=== PATIENT | female | born 1940 | race Caucasian/White ===

== ENCOUNTER 2016-09-06 09:55 | Inpatient (IN) | payer OTHER ==
[2016-09-06] MEDS ORDERED: NS 1,000 ML IV ONE (10:25)
--- NOTE | 2016-09-06 10:51 | EDPHY ---
H & P Stated Complaint: flare of diverticulitis/seeing dr atwood 09/17 for surgery Time Seen by Provider: 09/06/16 10:07 HPI/ROS: CHIEF COMPLAINT: Abdominal pain HISTORY OF PRESENT ILLNESS: The patient has a history of severe recurrent diverticulitis. She has been on antibiotics 3 times over the past 5 months. The patient is scheduled see colorectal specialist in 2 weeks. She was last on Cipro approximately 10 days ago. She has multiple medication allergies. The patient presents to the ED today with complaints of ongoing recurrent left lower quadrant pain. She denies fever. She denies vomiting. She denies additional complaints. The patient reports her pain as being moderate in nature. REVIEW OF SYSTEMS: A comprehensive 10 point review of systems is otherwise negative aside from elements mentioned in the history of present illness. Source: Patient Exam Limitations: No limitations - Personal History Current Tetanus/Diphtheria Vaccine: Unsure - Medical/Surgical History Hx Asthma: No Hx Chronic Respiratory Disease: No Hx Diabetes: No Hx Cardiac Disease: No Hx Renal Disease: No Hx Cirrhosis: No Hx Alcoholism: No Hx HIV/AIDS: No Hx Splenectomy or Spleen Trauma: No Other PMH: diverticulitis/htn/tia - Social History Smoking Status: Never smoked - Physical Exam Exam: General Appearance: Alert, no acute distress Eyes: Pupils equal and round no pallor or injection ENT, Mouth: Mucous membranes moist Respiratory: There are no retractions, lungs are clear to auscultation Cardiovascular: Regular rate and rhythm Gastrointestinal: Moderate tenderness to palpation in the left lower quadrant, no peritoneal signs, normal bowel sounds Neurological: A&O, normal motor function, normal sensory exam, normal cranial nerves Skin: Warm and dry, no rashes Musculoskeletal: Neck is supple nontender Extremities: symmetrical, full range of motion Constitutional: Initial Vital Signs Temperature (C) 36.7 C 09/06/16 10:00 Heart Rate 76 09/06/16 10:00 Respiratory Rate 17 09/06/16 10:00 Blood Pressure 183/113 H 09/06/16 10:00 O2 Sat (%) 96 09/06/16 10:00 O2 Delivery Mode Room Air Allergies/Adverse Reactions: acetaminophen [From Darvocet-N] Allergy (Verified 09/06/16 09:58) iodine Allergy (Verified 09/06/16 09:58) metronidazole [From Flagyl] Allergy (Verified 09/06/16 09:58) propoxyphene [From Darvocet-N] Allergy (Verified 09/06/16 09:58) contrast for ct Allergy (Uncoded 09/06/16 09:58) Home Medications: Medication Instructions Recorded Aspirin 81mg (*) 09/06/16 Atorvastatin Calcium 09/06/16 Carvedilol 09/06/16 Famotidine 09/06/16 Fortical (*) 09/06/16 Restasis Opht Drops(*) 09/06/16 Medical Decision Making - Diagnostics Imaging Results: Imaging Impressions Abdomen/Pelvis CT 09/06/16 10:46 Impression: 1. Acute diverticulitis of the proximal sigmoid colon. 2. No bowel obstruction, drainable abscesses or pneumoperitoneum. 3. Atherosclerotic aorta without aneurysm. Attention: This CT examination is specifically designed to evaluate patients who are clinically suspected of having acute obstructive uropathy. This examination does not use radiographic contrast, and as such, provides only a limited evaluation of the abdomen, pelvis and retroperitoneum. If there is further clinical suspicion for pathological conditions other than obstructive uropathy, a complete CT evaluation of the abdomen and pelvis utilizing intravenous, oral, and rectal contrast should be considered. Findings and recommendations discussed with Emergency Department physician, Damian Dozier at 11:27 hour, 09/06/2016. Final report concurs with initial preliminary interpretation. ED Course/Re-evaluation: The patient presents to the ED with complaints of acute abdominal pain and symptoms consistent with recurrent diverticulitis. She was taken for CT scan of the abdomen pelvis which demonstrates evidence of sigmoid diverticulitis without perforation or abscess. Patient had an IV established. She received a L of normal saline. She received 750 mg of IV Levaquin. The patient did undergo serial examinations by myself x2 over a 2 hour period. She continues to have moderate pain and moderate tenderness on exam. I do feel the patient should be admitted to the hospital for bowel rest and IV antibiotic therapy. Consultation was made with the hospitalist service for admission. Patient will be admitted by Dr. Carleen Arzate for further supportive care. Differential Diagnosis: Differential diagnosis considered includes diverticulitis, perforation, abscess , obstruction - Data Points Laboratory Results: Laboratory Results 09/06/16 11:00 09/06/16 11:00 09/06/16 09/06/16 09/06/16 11:00 11:00 11:00 WBC 10.42 10^3/uL H 10^3/uL (3.80-9.50) RBC 5.10 10^6/uL 10^6/uL (4.18-5.33) Hgb 16.2 g/dL g/dL (12.6-16.3) Hct 46.1 % % (38.0-47.0) MCV 90.4 fL fL (81.5-99.8) MCH 31.8 pg pg (27.9-34.1) MCHC 35.1 g/dL g/dL (32.4-36.7) RDW 11.9 % % (11.5-15.2) Plt Count 298 10^3/uL 10^3/uL (150-400) MPV 10.1 fL fL (8.7-11.7) Neut % (Auto) 67.9 % % (39.3-74.2) Lymph % (Auto) 20.3 % % (15.0-45.0) Beadle % (Auto) 9.5 % % (4.5-13.0) Eos % (Auto) 1.4 % % (0.6-7.6) Baso % (Auto) 0.6 % % (0.3-1.7) Nucleat RBC Rel Count 0.0 % % (0.0-0.2) Absolute Neuts (auto) 7.07 10^3/uL H 10^3/uL (1.70-6.50) Absolute Lymphs (auto) 2.12 10^3/uL 10^3/uL (1.00-3.00) Absolute Monos (auto) 0.99 10^3/uL H 10^3/uL (0.30-0.80) Absolute Eos (auto) 0.15 10^3/uL 10^3/uL (0.03-0.40) Absolute Basos (auto) 0.06 10^3/uL 10^3/uL (0.02-0.10) Absolute Nucleated RBC 0.00 10^3/uL 10^3/uL (0-0.01) Immature Gran % 0.3 % % (0.0-1.1) Immature Gran # 0.03 10^3/uL 10^3/uL (0.00-0.10) PT 12.6 SEC SEC (12.0-15.0) INR 0.95 (0.83-1.16) APTT 27.0 SEC SEC (23.0-38.0) Sodium 139 mEq/L mEq/L (134-144) Potassium 4.4 mEq/L mEq/L (3.5-5.2) Chloride 104 mEq/L mEq/L (97-110) Carbon Dioxide 23 mEq/l mEq/l (22-31) Anion Gap 12 mEq/L mEq/L (8-16) BUN 15 mg/dL mg/dL (7-23) Creatinine 0.8 mg/dL mg/dL (0.6-1.0) Estimated GFR > 60 Glucose 112 mg/dL H mg/dL (70-100) Calcium 10.3 mg/dL mg/dL (8.5-10.4) Medications Given: Discontinued Medications Sodium Chloride (Ns) 1,000 mls @ 0 mls/hr IV ONCE ONE; Wide Open PRN Reason: Protocol Stop: 09/06/16 10:26 Last Admin: 09/06/16 10:45 Dose: 1,000 mls Departure - Departure Disposition: [facility] Inpatient Acute Clinical Impression: Acute diverticulitis Condition: Good Referrals: Miri Harrell MD [Primary Care Provider] - As per Instructions
[2016-09-06 11:11] LABS: % IMMATURE GRANULYOCYTES 0.3 % (0.0-1.1); ABSOLUTE IMMATURE GRANULOCYTES 0.03 10^3/uL (0.00-0.10); ADD DIFF? NO; ADD MORPH? NO; ADD SCAN? NO; ATYPICAL LYMPHOCYTE FLAG 0 (0-99); FRAGMENT RBC FLAG 0 (0-99); HEMATOCRIT 46.1 % (38.0-47.0); HEMOGLOBIN 16.2 g/dL (12.6-16.3); LEFT SHIFT FLG 0 (0-99); LIPEMIA HEMOLYSIS FLAG 90 (0-99); MEAN CELL HEMOGLOBIN 31.8 pg (27.9-34.1); MEAN CELL HEMOGLOBIN CONCENTR. 35.1 g/dL (32.4-36.7); MEAN CELL VOLUME 90.4 fL (81.5-99.8); MEAN PLATELET VOLUME 10.1 fL (8.7-11.7); PLATELET CLUMPS FLAG 0 (0-99); PLATELET COUNT 298 10^3/uL (150-400); RED CELL DISTRIBUTION WIDTH 11.9 % (11.5-15.2)
[2016-09-06 11:18] LABS: INR 0.95 (0.83-1.16); PROTIME(PATIENT) 12.6 SEC (12.0-15.0)
[2016-09-06 11:31] LABS: ANION GAP 12 mEq/L (8-16); CALCIUM 10.3 mg/dL (8.5-10.4); CARBON DIOXIDE 23 mEq/l (22-31); CHLORIDE 104 mEq/L (97-110); CREATININE 0.8 mg/dL (0.6-1.0); GLOMERULAR FILTRATION RATE > 60; GLUCOSE 112 mg/dL (70-100); POTASSIUM 4.4 mEq/L (3.5-5.2); SODIUM 139 mEq/L (134-144)
[2016-09-06] MEDS ORDERED: ACETAMINOPHEN 325 MG TAB PO PRN (15:12)
[2016-09-06] MEDS ORDERED: ONDANSETRON DISINTEGRATING 4 MG TAB PO PRN (15:12)
[2016-09-06] MEDS: NS 1,000 ML IV SCH (15:54)
[2016-09-06] MEDS: CARVEDILOL 25 MG TAB PO SCH (16:24)
[2016-09-06] MEDS: HYDROmorphONE/DILAUDID 1 MG/ML SYR IVP PRN ×3 (16:24→21:46)
[2016-09-06] MEDS: ERTAPENEM 1 GM in NS 100 ML IV SCH (16:24)
--- NOTE | 2016-09-06 17:22 | GHP ---
[f rep st] HISTORY AND PHYSICAL DATE OF ADMISSION: 09/06/2016 CHIEF COMPLAINT: Abdominal pain. HISTORY OF PRESENT ILLNESS: The patient is a very sweet 76-year-old with a history significant for diverticulitis and diverticulosis. She has had multiple episodes in the last several years and has an appointment scheduled with the surgeon at the end of September. She has been relatively healthy. Her only other medical history is hypertension and comes in with several days of abdominal pain. She s aid her pain started about 3 weeks ago. It was fairly mild and she was able to deal with it; vikki ramirez, she went in to see her primary care provider on the . At that time she was started on Cipro. She has been intolerant of Augmentin in the past due to diarrhea and Flagyl has caused a severe bod y rash. Over the next several days she did not get much better. Last night, she started developing low-grad e fevers and this morning when she got up, she continued to have fairly severe abdominal pain so she came into the emergency department. She has no other significant symptoms. No headache, chest indra n, shortness of breath. She has had no diarrhea. Her last bowel movement was this morning. She is urinating. She has been eating okay and denies any lower extremity edema or any other joint pains. She has had multiple episodes previously of her diverticulitis. She was last hospitalized in [place] at which time she was started on Flagyl and that is when she had her body rash. She also has a hist ory of hypertension and that has been fairly labile in the past, as well as a remote history of [facility] cancer. REVIEW OF SYSTEMS: A 10-point review of systems was done and is negative except as stated in the hi story of present illness. PAST MEDICAL HISTORY: 1. Osteoarthritis. 2. Osteoporosis. 3. Dyslipidemia. 4. Hypertension. 5. Prediabetes. 6. Acid reflux. 7. History of breast cancer. 8. History of TIA. SOCIAL HISTORY: She is . She does have a son who lives close by. She is originally from [place] [place], but [place]. She denies any tobacco or significant alcohol u se. She does have a Living Will but wishes to be a full code at this time. FAMILY HISTORY: Noncontributory. Parents are . ALLERGIES: Include Augmentin which causes massive diarrhea, Flagyl which causes a rash, IV iodine d ye and propoxyphene. CURRENT MEDICATIONS: Include carvedilol 12.5 mg b.i.d., Lipitor 10 mg daily, aspirin daily, [place]-3 fatty acids, multivitamin, vitamin D3, calcitonin and Pepcid. PHYSICAL EXAMINATION: VITAL SIGNS: She is afebrile. Heart rate 70, blood pressure 150/86, respira tions 16. She is 95% on room air. GENERAL: She is a very nice 76-year-old woman in mild distress. She is alert and oriented. Speech is clear and fluent. HEENT: Nontraumatic. Pupils are equal. Extraocular movements intact. Speech is fluent. Mucous membranes are moist. Oropharynx is clear. NECK: Supple without adenopathy. HEART: Regular rate and rhythm without murmur, gallop, or rub. LUNGS: Clear bilaterally without wheeze, rhonchi, or rales. ABDOMEN: Slightly diminished bowel sounds. She does have significant tenderness in her left lower quadrant with guarding. No rebound. EXTREMITIES: No clubbing, cyanosis, or edema. MUSCULOSKELETAL: No joint deformities or effusion s. NEUROLOGIC: Her speech is fluent. She is alert and oriented. She moves all 4 extremities. SK IN: Intact, no rash. LABORATORY DATA: CBC shows a white count of 10.4, H and H and platelet count are normal. Electroly melissa and renal function are normal. Abdomen CT shows acute diverticulitis of the proximal sigmoid colon. No obvious abscesses noted. ASSESSMENT AND PLAN: A 76-year-old presents with abdominal pain and notable diverticulitis on CT sc an. 1. Acute diverticulitis of the sigmoid colon. The patient does have some drug allergies notable ab ove. Plan will be to start her on Invanz, keep on a clear liquid diet. Provide pain control and IV fluids. Will monitor her clinically over the next few days. 2. Hypertension. Blood pressure has been quite labile. Will resume her carvedilol and add IV anti hypertensives on an as-needed basis. 3. Osteoporosis. Continue her medications. 4. Prediabetes. Hemoglobin A1c of 6. Will monitor her a.m. sugars and provide insulin sliding sca le only as needed. 5. Deep venous thrombosis prophylaxis. Start low-molecular heparin. 6. Code status full. /[id number]/MODL
[2016-09-06] MEDS: FAMOTIDINE 20 MG TAB PO SCH (20:28)
[2016-09-06] MEDS: ATORVASTATIN CALCIUM 10 MG TAB PO SCH (20:28)
[2016-09-06] MEDS: ASPIRIN EC 81 MG TAB PO SCH (20:28)
[2016-09-06] MEDS: ONDANSETRON 4 MG/2 ML VIAL IVP PRN (21:46)
[2016-09-07] MEDS: NS 1,000 ML IV SCH (01:50)
[2016-09-07] MEDS: HYDROmorphONE/DILAUDID 1 MG/ML SYR IVP PRN ×3 (01:50→10:02)
[2016-09-07] MEDS: ONDANSETRON 4 MG/2 ML VIAL IVP PRN ×3 (01:50→10:02)
[2016-09-07 05:30] LABS: % IMMATURE GRANULYOCYTES 0.4 % (0.0-1.1); ABSOLUTE IMMATURE GRANULOCYTES 0.04 10^3/uL (0.00-0.10); ADD DIFF? NO; ADD MORPH? NO; ADD SCAN? NO; ATYPICAL LYMPHOCYTE FLAG 0 (0-99); FRAGMENT RBC FLAG 0 (0-99); HEMATOCRIT 39.7 % (38.0-47.0); HEMOGLOBIN 13.3 g/dL (12.6-16.3); LEFT SHIFT FLG 0 (0-99); LIPEMIA HEMOLYSIS FLAG 80 (0-99); MEAN CELL HEMOGLOBIN 31.1 pg (27.9-34.1); MEAN CELL HEMOGLOBIN CONCENTR. 33.5 g/dL (32.4-36.7); MEAN PLATELET VOLUME 10.2 fL (8.7-11.7); PLATELET CLUMPS FLAG 0 (0-99); PLATELET COUNT 230 10^3/uL (150-400); RED BLOOD CELL COUNT 4.27 10^6/uL (4.18-5.33)
[2016-09-07 05:50] LABS: ALANINE AMINOTRANSFERASE 31 IU/L (9-52); ALBUMIN 3.4 g/dL (3.5-5.0); ALKALINE PHOSPHATASE 89 IU/L (38-126); ANION GAP 7 mEq/L (8-16); ASPARTATE AMINOTRANSFERASE 16 IU/L (14-46); BILIRUBIN,TOTAL 1.3 mg/dL (0.1-1.4); CALCIUM 9.1 mg/dL (8.5-10.4); CARBON DIOXIDE 23 mEq/l (22-31); CHLORIDE 108 mEq/L (97-110); CREATININE 0.8 mg/dL (0.6-1.0); GLOMERULAR FILTRATION RATE > 60; GLUCOSE 101 mg/dL (70-100); POTASSIUM 4.3 mEq/L (3.5-5.2); SODIUM 138 mEq/L (134-144); TOTAL PROTEIN 5.8 g/dL (6.3-8.2)
[2016-09-07] MEDS: CHOLECALCIFEROL VIT D3 1,000 UNITS TAB PO SCH (10:03)
[2016-09-07] MEDS: FAMOTIDINE 20 MG TAB PO SCH ×2 (10:03→19:50)
[2016-09-07] MEDS: ASPIRIN EC 81 MG TAB PO SCH ×2 (10:03→19:51)
[2016-09-07] MEDS: CARVEDILOL 25 MG TAB PO SCH ×2 (10:03→17:28)
[2016-09-07] MEDS: CALCITONIN 200 UNITS/SPRAY INH NS SCH (10:04)
[2016-09-07] MEDS: CYCLOSPORINE 0.05% 1 EACH BOX EACHEYE SCH (10:05)
[2016-09-07] MEDS: ERTAPENEM 1 GM in NS 100 ML IV SCH (10:05)
[2016-09-07] MEDS: ENOXAPARIN 40 MG/0.4 ML SYR SC SCH (11:05)
[2016-09-07] MEDS ORDERED: oxyCODONE IR 5 MG TAB PO PRN (12:54)
--- NOTE | 2016-09-07 13:12 | HOSPPROG ---
Hospitalist Progress Note Assessment/Plan: Very pleasant 76-year-old is admitted with diverticulitis. She is little bit better today but still has no appetite and quite a bit of tenderness and left lower quadrant. Had an episode of nausea and vomiting this morning likely secondary to the narcotics. # diverticulitis, no evidence of abscess or perforation on CT scan. * Continue IV Invanz * Consider surgery consult if patient worsens or does not improve. # hypertension: Blood pressure well controlled currently # pre diabetes, blood sugars adequately controlled currently. # DVT prophylaxis: Patient refusing Lovenox but is ambulating. Subjective: Still unable to eat much, has a bit of pain in her left lower quadrant unclear if it is much better. Did have an episode of nausea vomiting this morning. Objective: Vital Signs Temp Pulse Resp BP Pulse Ox 36.6 C 68 18 106/60 92 09/07/16 08:47 09/07/16 10:03 09/07/16 08:47 09/07/16 10:03 09/07/16 08:47 Laboratory Results 09/07/16 05:14 09/07/16 05:14 09/06/16 09/07/16 09/08/16 05:59 05:59 05:59 Intake Total 2049 Output Total Balance 2048 PT 12.6 SEC (12.0-15.0) 09/06/16 11:00 INR 0.95 (0.83-1.16) 09/06/16 11:00 - Physical Exam Constitutional: uncomfortable Eyes: PERRL, EOMI Cardiovascular: regular rate and rhythym, no murmur, rub, or gallop Respiratory: no respiratory distress, no rales or rhonchi, clear to auscultation Gastrointestinal: tenderness (Left lower quadrant), guarding, No normoactive bowel sounds (Slightly diminished) Psychiatric: interacting appropriately, not anxious ICD10 Worksheet Patient Problems: Problems Problem Status Onset Acute diverticulitis Acute
[2016-09-07] MEDS: D5W 1/2 NS W/ 20 KCl/L 1,000 ML IV SCH ×2 (14:40→23:43)
[2016-09-07] MEDS: ATORVASTATIN CALCIUM 10 MG TAB PO SCH (19:50)
[2016-09-08 06:08] LABS: % IMMATURE GRANULYOCYTES 0.3 % (0.0-1.1); ABSOLUTE IMMATURE GRANULOCYTES 0.02 10^3/uL (0.00-0.10); ADD DIFF? NO; ADD MORPH? NO; ADD SCAN? NO; ATYPICAL LYMPHOCYTE FLAG 0 (0-99); FRAGMENT RBC FLAG 0 (0-99); HEMATOCRIT 38.7 % (38.0-47.0); LEFT SHIFT FLG 0 (0-99); LIPEMIA HEMOLYSIS FLAG 80 (0-99); MEAN CELL HEMOGLOBIN 31.3 pg (27.9-34.1); MEAN CELL HEMOGLOBIN CONCENTR. 33.6 g/dL (32.4-36.7); MEAN CELL VOLUME 93.3 fL (81.5-99.8); MEAN PLATELET VOLUME 10.5 fL (8.7-11.7); PLATELET CLUMPS FLAG 0 (0-99); PLATELET COUNT 239 10^3/uL (150-400); RED BLOOD CELL COUNT 4.15 10^6/uL (4.18-5.33); RED CELL DISTRIBUTION WIDTH 11.9 % (11.5-15.2)
[2016-09-08 06:45] LABS: ALANINE AMINOTRANSFERASE 27 IU/L (9-52); ALBUMIN 3.3 g/dL (3.5-5.0); ALKALINE PHOSPHATASE 79 IU/L (38-126); ANION GAP 6 mEq/L (8-16); ASPARTATE AMINOTRANSFERASE 21 IU/L (14-46); CARBON DIOXIDE 24 mEq/l (22-31); CHLORIDE 109 mEq/L (97-110); CREATININE 0.7 mg/dL (0.6-1.0); GLOMERULAR FILTRATION RATE > 60; GLUCOSE 135 mg/dL (70-100); POTASSIUM 4.2 mEq/L (3.5-5.2); SODIUM 139 mEq/L (134-144); TOTAL PROTEIN 5.7 g/dL (6.3-8.2)
[2016-09-08] MEDS: CALCITONIN 200 UNITS/SPRAY INH NS SCH (10:55)
[2016-09-08] MEDS: FAMOTIDINE 20 MG TAB PO SCH ×2 (11:00→19:39)
[2016-09-08] MEDS: ENOXAPARIN 40 MG/0.4 ML SYR SC SCH (11:00)
[2016-09-08] MEDS: ERTAPENEM 1 GM in NS 100 ML IV SCH (11:00)
[2016-09-08] MEDS: CHOLECALCIFEROL VIT D3 1,000 UNITS TAB PO SCH (11:00)
[2016-09-08] MEDS: CYCLOSPORINE 0.05% 1 EACH BOX EACHEYE SCH (11:01)
[2016-09-08] MEDS: CARVEDILOL 25 MG TAB PO SCH ×2 (11:03→17:57)
[2016-09-08] MEDS: ASPIRIN EC 81 MG TAB PO SCH ×2 (11:04→19:39)
[2016-09-08] MEDS: HYDROCODONE/APAP 5/325 TAB PO PRN ×3 (11:40→22:04)
--- NOTE | 2016-09-08 13:46 | HOSPPROG ---
Hospitalist Progress Note Assessment/Plan: Very pleasant 76-year-old is admitted with diverticulitis. She is little bit better today but still has no appetite and quite a bit of tenderness and left lower quadrant. Feels a little bit better, still with some LLQ pain. Getting hungry. # diverticulitis, no evidence of abscess or perforation on CT scan. * Continue IV Invanz * Consider surgery consult if patient worsens or does not improve. * She has a surgeon lined up as an outpatient. Dr. Dmitri Mosley [facility]. * Will gently advance diet and see how she tolerates it. * Discussed with ID regarding antibiotic therapy on disharge in the setting of her multiple drug sensitivities. She had a bad rash with flagyl (req hosp) and intractable diarrhea with augmentin. # hypertension: Blood pressure well controlled currently # pre diabetes, blood sugars adequately controlled currently. # DVT prophylaxis: Patient refusing Lovenox but is ambulating. Subjective: Still with some LLq pain but getting more hungry. Objective: Vital Signs Temp Pulse Resp BP Pulse Ox 36.8 C 65 16 131/70 H 94 09/08/16 08:44 09/08/16 08:44 09/08/16 08:44 09/08/16 08:44 09/08/16 08:44 Laboratory Results 09/08/16 04:45 09/08/16 06:00 09/07/16 09/08/16 09/09/16 05:59 05:59 05:59 Intake Total 2049 3011 Output Total 1 Balance 2048 3011 PT 12.6 SEC (12.0-15.0) 09/06/16 11:00 INR 0.95 (0.83-1.16) 09/06/16 11:00 - Physical Exam Constitutional: uncomfortable Eyes: PERRL Cardiovascular: regular rate and rhythym, no murmur, rub, or gallop Respiratory: no respiratory distress, no rales or rhonchi, clear to auscultation Gastrointestinal: normoactive bowel sounds, tenderness (LLQ), No guarding Neurologic: AAOx3 ICD10 Worksheet Patient Problems: Problems Problem Status Onset Acute diverticulitis Acute
[2016-09-08 15:47] VITALS: RESP 18
[2016-09-08 19:26] VITALS: O2SAT 92
[2016-09-08] MEDS ORDERED: ALTEPLASE 2 MG VIAL IVP PRN (19:27)
--- NOTE | 2016-09-08 19:29 | PDIAF ---
- Diagnosis Diagnosis: recurrent sigmoid diverticulitis Code Status: Full Code - Medication Management Discharge Medications: Medications to Continue on Transfer Aspirin EC [Aspirin EC 81 mg (*)] 81 mg PO BID 09/06/16 [Last Taken 09/05/16] Atorvastatin Calcium [Lipitor 10 mg (*)] 10 mg PO HS 09/06/16 [Last Taken ] Calcitonin,[place],Synthetic [Miacalcin] 1 spray NS DAILY 09/06/16 [Last Taken ] Carvedilol [Coreg (*)] 12.5 mg PO BIDMEAL 09/06/16 [Last Taken 09/05/16] Cholecalciferol Vit D3 [Vitamin D3 (*)] 1,000 units PO DAILY 09/06/16 [Last Taken 09/05/16] Famotidine [Pepcid 20 MG (*)] 20 mg PO BID 09/06/16 [Last Taken 09/05/16] Multivitamins [Multivitamin (*)] 1 each PO DAILY 09/06/16 [Last Taken 09/05/16] Blanco-3 Fatty Acids [Fish Oil 1000 mg (*)] 1,000 mg PO DAILY 09/06/16 [Last Taken 09/05/16] cycloSPORINE 0.05% [Restasis Opht Drops(*)] 1 drop EACHEYE DAILY 09/06/16 [Last Taken 09/05/16] Livestock [employer]er Antibiotics: ertapenem 1 g IV q 24 hours Care Home Antibiotic Stop Date: 10/06/16 Discharge Medications: Refer to the Discharge Home Medication list for PRN reason. PICC Care - Routine: Yes - Orders Services needed: Registered Nurse - Labs/Radiology CBC Date: 09/11/16 (weekly) CMP Date: 09/11/16 (weekly) Call or Fax Lab and Imaging Results to: Dr. Kenn Perrin - Follow Up Care Current Providers and Referrals: Miri Harrell MD [Primary Care Provider] - As per Instructions
[2016-09-08] MEDS: ATORVASTATIN CALCIUM 10 MG TAB PO SCH (19:39)
--- NOTE | 2016-09-08 22:10 | GCON ---
[f rep st] CONSULTATION INFECTIOUS DISEASES. DATE OF CONSULTATION: 09/08/2016 REFERRING PHYSICIAN: Carleen Arzate MD REASON FOR REFERRAL: Diverticulitis. HISTORY OF PRESENT ILLNESS: The patient is a 76-year-old female, who was admitted for diverticuliti s. The patient has a significant history for recurrent diverticulitis and diverticulosis. She stat es this is at least her 5th episode in the last several years. She has an appointment scheduled wit Dr. Dmitri Smallwood in [place] in the latter part of September. Other than her diverticulitis episode, s he has been generally healthy. She has intermittent abdominal pain, and this particular episode beg an 3 weeks prior to admission. Of note, the patient has not tolerated Flagyl secondary to severe fay dy rash, and is also intolerant of Augmentin. The patient did not respond to empiric ciprofloxacin therapy by her primary care physician. The night prior to admission she developed fevers. The josé miguel ent was admitted and started on ertapenem empirically. She feels somewhat better from admission. N o further subjective fevers or chills. PAST MEDICAL HISTORY: 1. Diverticulitis. 2. Dyslipidemia. 3. Hypertension. 4. Glucose intolerance. 5. Gastroesophageal reflux disease. 6. Breast cancer. 7. Transient ischemic attacks. 8. Osteoarthritis. 9. Osteoporosis. PAST SURGICAL HISTORY: None noted. ANTIBIOTICS: Ertapenem. ALLERGIES: The patient is allergic to Flagyl, iodine, propoxyphene, CT contrast, and intolerant to Augmentin. SOCIAL HISTORY: The patient is . Her son and [id number] live close here in [place]. The patient is originally from [place], and met her when he was in the service 50 years ago . She moved with him to [place], and has lived most of her life in [place] until he a few years ag o secondary to COPD. She does not have any significant tobacco or alcohol use. FAMILY HISTORY: Reviewed, but not contributory. REVIEW OF SYSTEMS: Other than that detailed above in the History of Present Illness, comprehensive 10-system review is negative. PHYSICAL EXAMINATION: VITAL SIGNS: Temperature maximum is 36.8, temperature current is 36.6, heart rate is 61, respiratory rate is 18, blood pressure is 136/78. GENERAL: The patient is a well-form ed, well-nourished, older female, in no acute distress. She is not toxic in appearance. She is kay rt and oriented x3. She is in a pleasant demeanor. HEENT: Normocephalic for age. Atraumatic. No scleral icterus. No oral lesion or drainage from the nares. Eyes, lids and conjunctivae are withi n normal limits. Pupils are equal and round bilaterally. NECK: Supple without meningismus. LUNGS : Clear to auscultation bilaterally with good effort. HEART: Regular rate and rhythm. No signifi cant peripheral edema. ABDOMEN: Soft, mildly tender in the lower quadrants to palpation. Left low er quadrant significantly more tender. No rebound. No masses. SKIN: Warm and dry to the touch. No rash or lesion. MUSCULOSKELETAL: No muscle belly tenderness is noted. No joint line effusion o r arthritis seen. NEURO: Cranial nerves 2-12 seem to be intact. Peripheral sensation seems intact in extremities. LABORATORY DATA: The patient has a CBC dated 09/08/2016, shows a white blood cell count of 5.72, he moglobin of 13.0, hematocrit of 38.7, and a platelet count of 239. Differential is within normal li mits. Serum chemistries on 09/08/2016 show sodium 139, potassium 4.2, chloride of 109, bicarbonate 24, BUN of 5, and creatinine is 0.7, AST is 21, ALT is 27. MICROBIOLOGIC DATA: The patient has no micro samples. RADIOLOGIC DATA: The patient had an abdominal pelvic CT dated 09/06/2016, which shows acute diverti culitis of the proximal sigmoid colon. No drainable abscess or pneumoperitoneum seen. ASSESSMENT: Recurrent sigmoid diverticulitis. The patient is clearly a surgical candidate. She is , however, intolerant of both Flagyl and Augmentin, which are 2 main stay antibiotics to use for ora l treatment. I suspect that the safest course would be to continue her on IV antibiotic in a bridge strategy until Dr. Smallwood from [facility] in [place] is able to do a consult and schedule h er for surgery. Discussed this at length with the patient and her family. They are in agreement. We will put a PICC line in, and arrange for hopefully home IV antibiotics tomorrow. Fall back plan if the insurance plans do not cover home IV antibiotic is to do daily antibiotic infusions here at [facility]. PLAN: 1. Continue ertapenem 1 g IV q.24 hours. 2. PICC line placement tomorrow. 3. Home IV antibiotics to be arranged. 4. Discharge in the next 1-2 days when home IV antibiotics and patient is stable. /[id number]/MODL
[2016-09-09] MEDS: ASPIRIN EC 81 MG TAB PO SCH (08:23)
[2016-09-09] MEDS: CARVEDILOL 25 MG TAB PO SCH (08:24)
[2016-09-09] MEDS: CHOLECALCIFEROL VIT D3 1,000 UNITS TAB PO SCH (08:24)
[2016-09-09] MEDS: ENOXAPARIN 40 MG/0.4 ML SYR SC SCH (08:31)
[2016-09-09 10:28] VITALS: BP 136/83; PULSE 64; TEMP 97.9
[2016-09-09] MEDS: ERTAPENEM 1 GM in NS 100 ML IV SCH (10:30)
[2016-09-09] MEDS: CYCLOSPORINE 0.05% 1 EACH BOX EACHEYE SCH (12:13)
[2016-09-09] MEDS: CALCITONIN 200 UNITS/SPRAY INH NS SCH (12:14)
[2016-09-09] MEDS: FAMOTIDINE 20 MG TAB PO SCH (12:16)
--- NOTE | 2016-09-09 14:17 | GDS ---
[f rep st] DISCHARGE SUMMARY DIAGNOSES: 1. Diverticulitis, recurrent. 2. Multiple drug intolerances. 3. Hypertension. 4. Osteoarthritis. 5. Osteoporosis. 6. Dyslipidemia. 7. Prediabetes. 8. Remote history of breast cancer. CONSULTATIONS: Infectious disease. PROCEDURES DONE: 1. Abdominal and pelvis CT scan, notable for sigmoid diverticulitis. 2. PICC line insertion. HOSPITAL COURSE: The patient is a 76-year-old with history of recurrent diverticulitis in the sigmo id colon. She has developed drug intolerances to metronidazole which caused a generalized rash and Augmentin, which causes intractable diarrhea. Her most recent episode of diverticulitis started a c ouple weeks prior to her admission. She was placed on Cipro with worsening of her symptoms and was admitted on 09/06. She was placed on Invanz with good resolution of her symptoms, however, given he r drug sensitivities, it is difficult to send her out on an oral regimen. I had Infectious Disease see her. They agreed to continue her on Invanz until she is able to schedule followup with [facility], and be evaluated for likely colectomy. She will likely need to continue her IV antibiotics until definitive treatment for her recurrent diverticulitis is done. CONDITION ON DISCHARGE: Good. She has been afebrile her abdominal exam is benign. Her white count has improved. Vital signs are stable. DISCHARGE MEDICATIONS: Please see discharge medication form. She will resume her home medications and will be on Invanz daily. FOLLOWUP INSTRUCTIONS: She should follow up with Dr. Kenn Perrin on September 15, the appointment has been made. She will also schedule follow up with Dr. Sahsa Cantu as an outpatient next week. Home care has been set up and they will manage ongoing treatment with Invanz until she follows up with Dr Simi Perrin. Total time spent with patient on day of discharge and coordination of care is 35 minutes. Copy requested to: /[id number]/RAFAT
== END 2016-09-09 15:07 | disposition home health service (06) | DRG 392 ==
LOC: F1N 14:36
PROVIDERS: ADMIT Internal Medicine; ATTEND Internal Medicine
PROC: 02HV33Z Insertion of Infusion Device into Superior Vena Cava, Percutaneous Approach (ICD-10-PCS; principal; 2016-09-09)
DX: K57.30 Diverticulosis of large intestine without perforation or abscess without bleeding (principal); I10 Essential (primary) hypertension; M81.0 Age-related osteoporosis without current pathological fracture; E78.5 Hyperlipidemia, unspecified; R73.03 Prediabetes; Z85.3 Personal history of malignant neoplasm of breast
CPT/HCPCS: 96365; 96366; 97161-GP; C1751; G8978-GP-CI; G8979-GP-CI; G8980-GP-CI; J1170; J1335; J1650; J1956; J2405

== ENCOUNTER 2016-09-26 06:45 | Inpatient (IN) | payer OTHER ==
--- NOTE | 2016-09-26 07:08 | PDHPUP ---
History & Physical Update H&P update statement: This history and physical update is based on an assessment of the patient which was completed after admission or registration (within 24 hours), but prior to the surgery/procedure. H&P update: H&P reviewed & patient examined, no change in patient's condition since H&P completed
[2016-09-26] MEDS ORDERED: cefOXitin SODIUM 2 GM in D5W 100 ML IV ONE (07:26)
[2016-09-26] MEDS ORDERED: LIDOCAINE 1% 2 ML INJ ID PRN (07:27)
[2016-09-26] MEDS ORDERED: LR 1,000 ML IV ONE (07:27)
[2016-09-26] MEDS ORDERED: CEFAZOLIN 2 GM/DEXTROSE/100 ML BAG IV ONE (07:58)
[2016-09-26] MEDS ORDERED: MIDAZOLAM 2 MG/2 ML VIAL IVP ONE ×2 (07:59→08:09)
--- NOTE | 2016-09-26 07:59 | PDANEPAE ---
ANE Past Medical History Past Medical History: presents for colon resection - Cardiovascular History Hx Hypertension: Yes Hx Arrhythmias: No Hx Chest Pain: No Hx Coronary Artery / Peripheral Vascular Disease: No Hx CHF / Valvular Disease: No Hx Palpitations: No - Pulmonary History Hx COPD: No Hx Asthma/Reactive Airway Disease: No Hx Recent Upper Respiratory Infection: No Hx Oxygen in Use at Home: No Hx Sleep Apnea: No Sleep Apnea Screening Result - Last Documented: Negative - Neurologic History Hx Cerebrovascular Accident: No Hx Seizures: No Hx Dementia: No Neurologic History Comment: TIA 2008 - Endocrine History Hx Diabetes: No - Renal History Hx Renal Disorders: No Renal History Comment: STONES IN PAST - Liver History Hx Hepatic Disorders: No - Neurological & Psychiatric Hx Hx Neurological and Psychiatric Disorders: No - Cancer History Hx Cancer: Yes Cancer History Comment: BREAST - Congenital Disorder History Hx Congenital Disorders: No - GI History Hx Gastrointestinal Disorders: Yes Gastrointestinal History Comment: DIVERTICULITIS - Other Health History Other Health History: NEG - Chronic Pain History Chronic Pain: No - Surgical History Prior Surgeries: HYSTERECTOMY. KNEE SCOPE R. BREAST LUMPECTOMY L. ORAL SURGERY. BREAST BX. KIDNEY STONE REMOVAL ANE Review of Systems - Exercise capacity Exercise capacity: >=4 METS METS (RN): 4 METS ANE Patient History - Allergies Allergies/Adverse Reactions: metronidazole [From Flagyl] Allergy (Severe, Verified 09/06/16 14:13) Hives iodine Allergy (Verified 09/06/16 14:13) Other-Enter Comments propoxyphene [From Darvocet-N] Allergy (Verified 09/06/16 14:13) Hives contrast for ct Allergy (Uncoded 09/06/16 14:13) Other-Enter Comments - Home Medications Home Medications: Aspirin EC [Aspirin EC 81 mg (*)] 81 mg PO BID 09/06/16 [Last Taken 09/24/16] Atorvastatin Calcium [Lipitor 10 mg (*)] 10 mg PO HS 09/06/16 [Last Taken ] Calcitonin,[place],Synthetic [Miacalcin] 1 spray NS DAILY 09/06/16 [Last Taken ] Carvedilol [Coreg (*)] 12.5 mg PO BIDMEAL 09/06/16 [Last Taken 09/24/16] Cholecalciferol Vit D3 [Vitamin D3 (*)] 1,000 units PO DAILY 09/06/16 [Last Taken 09/24/16] Famotidine [Pepcid 20 MG (*)] 20 mg PO BID 09/06/16 [Last Taken 09/24/16] Multivitamins [Multivitamin (*)] 1 each PO DAILY 09/06/16 [Last Taken 09/24/16] [place]-3 Fatty Acids [Fish Oil 1000 mg (*)] 1,000 mg PO DAILY 09/06/16 [Last Taken 09/24/16] cycloSPORINE 0.05% [Restasis Opht Drops(*)] 1 drop EACHEYE DAILY 09/06/16 [Last Taken 09/24/16] Herbals/Supplements -Info Only 1 ea PO DAILY 09/22/16 [Last Taken 09/24/16] - NPO status NPO Since - Liquids (Date): 09/25/16 NPO Since - Liquids (Time): 18:00 NPO Since - Solids (Date): 09/25/16 NPO Since - Solids (Time): 18:00 - Smoking Hx Smoking Status: Never smoked ANE Labs/Vital Signs - Vital Signs Blood Pressure: 147/74 Heart Rate: 63 Respiratory Rate: 16 O2 Sat (%): 96 Height: 163.83 cm Weight: 61.235 kg ANE Physical Exam - Airway Neck exam: FROM Mallampati Score: Class 1 Mouth exam: normal dental/mouth exam - Pulmonary Pulmonary: no respiratory distress - Cardiovascular Cardiovascular: regular rate and rhythym - ASA Status ASA Status: II ANE Anesthesia Plan Anesthesia Plan: general endotracheal anesthesia
[2016-09-26] MEDS ORDERED: fentaNYL 100 MCG/2 ML INJ ONE ×3 (08:12→11:49)
[2016-09-26] MEDS ORDERED: PROPOFOL/EMULSION 500 MG/50 ML BOTTLE IV ONE ×2 (08:13→08:58)
[2016-09-26] MEDS ORDERED: MIDAZOLAM 2 MG/2 ML VIAL ONE (08:23)
[2016-09-26] MEDS ORDERED: BUPIVACAINE 0.5% 30 ML SDV ONE (08:35)
--- NOTE | 2016-09-26 11:07 | POSTOPPROG ---
Post Op Note Date of Operation: 09/26/16 Surgeon: Gabriela Woodson Optoelectronics Engineer: manuel Anesthesiologist: josiah Anesthesia: GET(General Endotracheal) Pre-op Diagnosis: recurrent diverticulitis Post-op Diagnosis: same Indication: 76yo F with 6 episodes of sigmoid diverticulitis Procedure: lap assisted sigmoid colectomy with splenic flexure takedown Findings: diverticula of sigmoid Inf/Abcess present in the surg proc area at time of surgery?: No Depth: Organ Space EBL: Minimal Drains: Kai Palacios Specimen(s): sigmoid colon anastomotic rings
[2016-09-26] MEDS ORDERED: diphenhydrAMINE 25 MG CAP PO PRN (11:09)
[2016-09-26] MEDS ORDERED: ACETAMINOPHEN 325 MG TAB PO PRN (11:09)
[2016-09-26] MEDS ORDERED: NALOXONE HCL 0.4 MG/ML INJ IVP PRN ×2 (11:13→12:31)
[2016-09-26] MEDS ORDERED: ONDANSETRON 4 MG/2 ML VIAL IVP PRN (11:13)
[2016-09-26] MEDS: fentaNYL 100 MCG/2 ML INJ IVP PRN ×4 (11:50→12:27)
[2016-09-26] MEDS ORDERED: HYDROmorphONE/DILAUDID 1 MG/ML SYR IVP PRN ×2 (12:31)
[2016-09-26] MEDS ORDERED: HYDROmorphONE/DILAUDID 1 MG/ML SYR ONE (12:31)
--- NOTE | 2016-09-26 12:47 | GOP ---
[f rep st] OPERATIVE REPORT DATE OF OPERATION: 09/26/2016 SURGEON: Gabriela Woodson MD NEUROSURGEON: Gabriela Woodson MD SALES SUPERINTENDENT: CLIVE Parry ANESTHESIA: Dr. Lauri Etienne/general. PREOPERATIVE DIAGNOSIS: Recurrent diverticulitis. POSTOPERATIVE DIAGNOSIS: Recurrent diverticulitis. PROCEDURE PERFORMED: Laparoscopic sigmoid colectomy with splenic flexure takedown. FINDINGS: Colon was adhered to the abdominal sidewall in 2 different places, multiple diverticula. ESTIMATED BLOOD LOSS: 25 cc. INDICATIONS: The patient is a 76-year-old woman who has had multiple attacks of diverticulitis. She has most recently had difficulty with antibiotics and the attacks are becoming more frequent. She has been on Invanz and is tolerating it well. DESCRIPTION OF PROCEDURE: The patient was brought into the operating room, placed supine on the table, and general anesthesia was administered. She was placed in the lithotomy position. Her abdomen and perineum were prepped and draped in the usual sterile fashion. I infiltrated all sites with 0.5% Marcaine prior to making incisions. I elevated the umbilicus. I inserted the Veress needle. It passed the hanging drop test. Her abdomen insufflated easily to a pressure of 15 mmHg. I placed a 5 mm trocar with a camera at this site. I explored her abdomen. I could see 2 areas of the sigmoid colon that were adhered to the abdominal sidewall. I placed a 5 mm trocar under direct vision at the pubis, her previous incision line, as well as 1 in the right lower quadrant. I initially began dividing the white line of Toldt up to the splenic flexure. I took down some of the adhesions from the colon to the abdominal wall. I then began a medial to lateral approach and I identified the sigmoid vessels and I ligated them. Next, I identified and protected the ureter. I continued my dissection through the mesentery down to the rectum where the tenia splayed. I completed my splenic flexure takedown so that the descending colon would reach into the pelvis without any tension. Once I was satisfied with my dissection, I upsized the port at the pubis. I used the Endo GOLD 60 to divide the rectum using 2 fires. I then made a Pfannenstiel incision. I dissected down through the subcutaneous tissues. I divided the fascia. I spread the rectus muscles and I extracorporealized the bowel. I selected my point of transection where there were no diverticula. The bowel was pink and healthy. I divided the bowel with scissors. I used a 2-0 Prolene to make a pursestring in the descending colon. . I inserted the 29 EEA anvil and tied the pursestring. I returned the bowel back into the abdominal cavity. I placed a [place] drain around the Derek wound protector and re- insufflated. Sequential dilation was performed of her rectum and the EEA stapler was ultimately inserted and advanced and the spike deployed. This was connected to the anvil. There was no tension or torsion. The colon reached into the pelvis easily. The stapler was fired. I performed an air insufflation test and no leaks were noted. The donuts were complete. Suction irrigation was performed. A 15 round silicone drain was placed into the pelvis and sutured in place with 3-0 nylon. The Derek wound protector was removed. The peritoneum was closed with 0 Vicryl. Fascia closed with 0 PDS. Skin closed with 3-0 Vicryl followed by 4-0 Monocryl. Dermabond applied. She was taken out of lithotomy position, awakened in the operating room, extubated, transferred to PACU in stable condition. /[id number]/MODL MTDD
[2016-09-26] MEDS: ONDANSETRON 4 MG/2 ML VIAL IVP PRN ×2 (13:54→18:36)
[2016-09-26] MEDS: HYDROmorphONE/DILAUDID 1 MG/ML SYR IVP PRN ×4 (13:54→20:44)
[2016-09-26] MEDS ORDERED: IBUPROFEN 800 MG TAB PO SCH (14:00)
[2016-09-26] MEDS ORDERED: THROMBIN (BOVINE) 20,000 UNIT SPRAY TP ONE (18:11)
[2016-09-26] MEDS: CARVEDILOL 25 MG TAB PO SCH (18:35)
--- NOTE | 2016-09-26 18:37 | SOAPPROG ---
AURE Progress Note Assessment/Plan: Assessment: POD # 0 s/p lap sigmoidectomy with splenic flexure takedown Was doing well and then about 5 hours post op had bleeding from rectum Slowed considerably Injected thrombin and placed surgicel Will check labs and monitor bleeding Scant serosang from TANIA Plan: 09/26/16 18:36 Objective: Vital Signs Temp Pulse Resp BP Pulse Ox 36.3 C 75 16 140/80 H 95 09/26/16 17:29 09/26/16 17:29 09/26/16 17:29 09/26/16 17:29 09/26/16 17:29 09/25/16 09/26/16 09/27/16 05:59 05:59 05:59 Intake Total 500 Output Total 1055 Balance -555 ICD10 Worksheet Patient Problems: Problems Problem Status Onset Acute diverticulitis Acute
[2016-09-26] MEDS: ASPIRIN EC 81 MG TAB PO SCH (20:30)
[2016-09-26] MEDS: FAMOTIDINE 20 MG TAB PO SCH (20:30)
[2016-09-26] MEDS: ATORVASTATIN CALCIUM 10 MG TAB PO SCH (20:30)
[2016-09-26 21:10] LABS: HEMATOCRIT 38.6 % (38.0-47.0); HEMOGLOBIN 13.2 g/dL (12.6-16.3)
[2016-09-26] MEDS: HYDROCODONE/APAP 5/325 TAB PO PRN (23:23)
--- NOTE | 2016-09-27 03:19 | SOAPPROG ---
AURE Progress Note Assessment/Plan: Assessment: POD # 0 s/p lap sigmoidectomy with splenic flexure takedown Was doing well and then about 5 hours post op had bleeding from rectum Bleeding slowed/stopped after thrombin and surgicel Got called at 2:30 am that she had more dark blood Evaluated and had some clots but not dripping Old blood TANIA serosang fluid. Only 35 cc since 1900 Will monitor/CBC in am Likely from staple line. May need intervention/clip Plan: 09/26/16 18:36 09/27/16 03:17 Objective: Vital Signs Temp Pulse Resp BP Pulse Ox 36.9 C 67 18 131/69 H 93 09/26/16 23:33 09/27/16 02:29 09/27/16 02:29 09/27/16 02:29 09/27/16 02:29 Laboratory Results 09/26/16 20:55 09/25/16 09/26/16 09/27/16 05:59 05:59 05:59 Intake Total 500 Output Total 1085 Balance -585 ICD10 Worksheet Patient Problems: Problems Problem Status Onset Acute diverticulitis Acute
[2016-09-27] MEDS: ERTAPENEM 1 GM in NS 100 ML IV SCH ×2 (04:28→08:31)
[2016-09-27 04:49] LABS: % IMMATURE GRANULYOCYTES 0.5 % (0.0-1.1); ABSOLUTE IMMATURE GRANULOCYTES 0.08 10^3/uL (0.00-0.10); ADD DIFF? NO; ADD MORPH? NO; ADD SCAN? NO; ATYPICAL LYMPHOCYTE FLAG 0 (0-99); FRAGMENT RBC FLAG 0 (0-99); HEMATOCRIT 34.9 % (38.0-47.0); HEMOGLOBIN 11.8 g/dL (12.6-16.3); LEFT SHIFT FLG 20 (0-99); LIPEMIA HEMOLYSIS FLAG 90 (0-99); MEAN CELL HEMOGLOBIN 31.1 pg (27.9-34.1); MEAN CELL HEMOGLOBIN CONCENTR. 33.8 g/dL (32.4-36.7); MEAN CELL VOLUME 92.1 fL (81.5-99.8); MEAN PLATELET VOLUME 10.2 fL (8.7-11.7); PLATELET CLUMPS FLAG 0 (0-99); PLATELET COUNT 270 10^3/uL (150-400); RED BLOOD CELL COUNT 3.79 10^6/uL (4.18-5.33); RED CELL DISTRIBUTION WIDTH 11.8 % (11.5-15.2)
[2016-09-27 04:58] LABS: ANION GAP 9 mEq/L (8-16); CALCIUM 9.5 mg/dL (8.5-10.4); CARBON DIOXIDE 24 mEq/l (22-31); CHLORIDE 108 mEq/L (97-110); CREATININE 0.8 mg/dL (0.6-1.0); GLOMERULAR FILTRATION RATE > 60; GLUCOSE 118 mg/dL (70-100); POTASSIUM 4.4 mEq/L (3.5-5.2); SODIUM 141 mEq/L (134-144)
[2016-09-27] MEDS ORDERED: DESMOPRESSIN ACETATE 18 MCG in NS 50 ML IV ONE (08:06)
[2016-09-27] MEDS: HYDROmorphONE/DILAUDID 1 MG/ML SYR IVP PRN ×4 (08:27→19:35)
[2016-09-27] MEDS: FAMOTIDINE 20 MG TAB PO SCH ×2 (08:33→20:57)
[2016-09-27] MEDS: CARVEDILOL 25 MG TAB PO SCH ×2 (08:33→18:38)
[2016-09-27] MEDS: CHOLECALCIFEROL VIT D3 1,000 UNITS TAB PO SCH (08:33)
[2016-09-27] MEDS: CALCITONIN 200 UNITS/SPRAY INH NS SCH (08:35)
[2016-09-27] MEDS ORDERED: ENOXAPARIN 40 MG/0.4 ML SYR SC SCH (09:00)
[2016-09-27] MEDS: ASPIRIN EC 81 MG TAB PO SCH (10:41)
[2016-09-27] MEDS: CYCLOSPORINE 0.05% 1 EACH BOX EACHEYE SCH (11:11)
--- NOTE | 2016-09-27 13:03 | SOAPPROG ---
SOAP Progress Note Assessment/Plan: Assessment: SP COLECTOMY WITH POSTOP ANASTAMOTIC BLEEDING/ SEEMS TO BE IMPROVED AFTER DDAVP INFUSION/ HCT 34 BUT FU PENDING Plan:OBSERVE/ CONTINUE NPO EXCEPT SIPS/ HOLD LOVENOX AND ASA 09/27/16 13:01 Objective: Vital Signs Temp Pulse Resp BP Pulse Ox 36.8 C 80 14 107/49 L 97 09/27/16 11:47 09/27/16 11:47 09/27/16 11:47 09/27/16 11:47 09/27/16 11:47 Laboratory Results 09/27/16 04:30 09/27/16 04:30 09/26/16 09/27/16 09/28/16 05:59 05:59 05:59 Intake Total 1872 Output Total 1590 Balance 282 ICD10 Worksheet Patient Problems: Problems Problem Status Onset Acute diverticulitis Acute
[2016-09-27 13:51] LABS: HEMATOCRIT 34.6 % (38.0-47.0); HEMOGLOBIN 11.7 g/dL (12.6-16.3)
[2016-09-27] MEDS: NS 1,000 ML IV SCH (16:32)
[2016-09-27] MEDS: ATORVASTATIN CALCIUM 10 MG TAB PO SCH (20:57)
[2016-09-28] MEDS: HYDROCODONE/APAP 5/325 TAB PO PRN ×2 (00:17→15:25)
[2016-09-28 05:15] LABS: INR 1.09 (0.83-1.16)
[2016-09-28 05:16] LABS: APTT 26.2 SEC (23.0-38.0)
[2016-09-28 05:23] LABS: % IMMATURE GRANULYOCYTES 0.5 % (0.0-1.1); ABSOLUTE IMMATURE GRANULOCYTES 0.04 10^3/uL (0.00-0.10); ADD DIFF? NO; ADD MORPH? NO; ADD SCAN? NO; ATYPICAL LYMPHOCYTE FLAG 10 (0-99); FRAGMENT RBC FLAG 0 (0-99); HEMATOCRIT 28.7 % (38.0-47.0); HEMOGLOBIN 9.7 g/dL (12.6-16.3); LEFT SHIFT FLG 0 (0-99); LIPEMIA HEMOLYSIS FLAG 90 (0-99); MEAN CELL HEMOGLOBIN 31.7 pg (27.9-34.1); MEAN CELL HEMOGLOBIN CONCENTR. 33.8 g/dL (32.4-36.7); MEAN CELL VOLUME 93.8 fL (81.5-99.8); MEAN PLATELET VOLUME 10.1 fL (8.7-11.7); PLATELET CLUMPS FLAG 0 (0-99); PLATELET COUNT 188 10^3/uL (150-400); RED BLOOD CELL COUNT 3.06 10^6/uL (4.18-5.33); RED CELL DISTRIBUTION WIDTH 11.9 % (11.5-15.2)
[2016-09-28] MEDS: FAMOTIDINE 20 MG TAB PO SCH ×2 (09:57→20:03)
[2016-09-28] MEDS: CARVEDILOL 25 MG TAB PO SCH ×2 (09:57→18:29)
[2016-09-28] MEDS: CHOLECALCIFEROL VIT D3 1,000 UNITS TAB PO SCH (09:58)
[2016-09-28] MEDS: ERTAPENEM 1 GM in NS 100 ML IV SCH (09:58)
[2016-09-28] MEDS: CYCLOSPORINE 0.05% 1 EACH BOX EACHEYE SCH (09:59)
[2016-09-28] MEDS: CALCITONIN 200 UNITS/SPRAY INH NS SCH (09:59)
[2016-09-28] MEDS: HYDROmorphONE/DILAUDID 1 MG/ML SYR IVP PRN (12:03)
--- NOTE | 2016-09-28 13:17 | SOAPPROG ---
SOAP Progress Note Assessment/Plan: Assessment: SP COLECTOMY WITH POSTOP ANASTAMOTIC BLEEDING/ SEEMS TO BE IMPROVED AFTER DDAVP INFUSION/ HCT 34 BUT FU PENDING Plan:OBSERVE/ CONTINUE NPO EXCEPT SIPS/ HOLD LOVENOX AND ASA 09/27/16 13:01 09/28/16 13:16 VS STABLE / HCT 29/ COAGS OK/ NO MAJOR CLOTS OR FRESH BLEEDING/ ADVANCE DIET Objective: Vital Signs Temp Pulse Resp BP Pulse Ox 36.5 C 65 14 97/50 L 92 09/28/16 11:50 09/28/16 11:50 09/28/16 11:50 09/28/16 11:50 09/28/16 11:50 Laboratory Results 09/28/16 04:50 09/27/16 04:30 09/27/16 09/28/16 09/29/16 05:59 05:59 05:59 Intake Total 1872 Output Total 1590 1150 Balance 282 -1150 PT 14.0 SEC (12.0-15.0) 09/28/16 04:50 INR 1.09 (0.83-1.16) 09/28/16 04:50 ICD10 Worksheet Patient Problems: Problems Problem Status Onset Acute diverticulitis Acute
[2016-09-28] MEDS: NS 1,000 ML IV SCH (17:34)
[2016-09-28] MEDS: ATORVASTATIN CALCIUM 10 MG TAB PO SCH (20:03)
[2016-09-29] MEDS: HYDROCODONE/APAP 5/325 TAB PO PRN ×4 (01:36→21:12)
[2016-09-29 05:59] LABS: % IMMATURE GRANULYOCYTES 0.3 % (0.0-1.1); ABSOLUTE IMMATURE GRANULOCYTES 0.03 10^3/uL (0.00-0.10); ADD DIFF? NO; ADD MORPH? NO; ADD SCAN? NO; ATYPICAL LYMPHOCYTE FLAG 10 (0-99); FRAGMENT RBC FLAG 0 (0-99); HEMATOCRIT 31.4 % (38.0-47.0); HEMOGLOBIN 10.7 g/dL (12.6-16.3); LEFT SHIFT FLG 0 (0-99); LIPEMIA HEMOLYSIS FLAG 90 (0-99); MEAN CELL HEMOGLOBIN 31.1 pg (27.9-34.1); MEAN CELL HEMOGLOBIN CONCENTR. 34.1 g/dL (32.4-36.7); MEAN CELL VOLUME 91.3 fL (81.5-99.8); PLATELET CLUMPS FLAG 0 (0-99); PLATELET COUNT 206 10^3/uL (150-400); RED BLOOD CELL COUNT 3.44 10^6/uL (4.18-5.33); RED CELL DISTRIBUTION WIDTH 11.4 % (11.5-15.2)
[2016-09-29] MEDS: ERTAPENEM 1 GM in NS 100 ML IV SCH (08:50)
[2016-09-29] MEDS: CHOLECALCIFEROL VIT D3 1,000 UNITS TAB PO SCH (08:53)
[2016-09-29] MEDS: FAMOTIDINE 20 MG TAB PO SCH ×2 (08:53→21:12)
[2016-09-29] MEDS: CALCITONIN 200 UNITS/SPRAY INH NS SCH (08:53)
[2016-09-29] MEDS: CARVEDILOL 25 MG TAB PO SCH ×2 (08:55→19:13)
[2016-09-29] MEDS: CYCLOSPORINE 0.05% 1 EACH BOX EACHEYE SCH (08:56)
--- NOTE | 2016-09-29 09:39 | SOAPPROG ---
SOAP Progress Note Assessment/Plan: Assessment/Plan: 76 Y F s/p sigmoid colectomy for diverticulitis, post op colonic bleeding. H&H stable. Advance diet. Dispo: possibly home tomorrow if H&H stable, no further bleeding. S: passed a clot last night. nothing this am. hungry. O: alert, nad ncat, mmm, no pallor ctab rrr abd soft, inc cdi, drain serosanguinous, appropriately ttp. 09/29/16 09:37 Objective: Vital Signs Temp Pulse Resp BP Pulse Ox 36.6 C 65 16 125/57 H 90 L 09/29/16 07:23 09/29/16 07:23 09/29/16 07:23 09/29/16 07:23 09/29/16 07:23 Laboratory Results 09/29/16 05:35 09/27/16 04:30 09/28/16 09/29/16 09/30/16 05:59 05:59 05:59 Intake Total 1662 Output Total 1150 1360 Balance -1150 302 PT 14.0 SEC (12.0-15.0) 09/28/16 04:50 INR 1.09 (0.83-1.16) 09/28/16 04:50 ICD10 Worksheet Patient Problems: Problems Problem Status Onset Acute diverticulitis Acute
[2016-09-29] MEDS: ONDANSETRON DISINTEGRATING 4 MG TAB PO PRN (10:11)
[2016-09-29] MEDS: DOCUSATE SODIUM 100 MG CAP PO SCH ×2 (11:20→21:12)
[2016-09-29] MEDS: ATORVASTATIN CALCIUM 10 MG TAB PO SCH (21:12)
[2016-09-30] MEDS: HYDROCODONE/APAP 5/325 TAB PO PRN ×3 (03:21→16:49)
[2016-09-30 05:29] LABS: % IMMATURE GRANULYOCYTES 0.3 % (0.0-1.1); ABSOLUTE IMMATURE GRANULOCYTES 0.02 10^3/uL (0.00-0.10); ADD DIFF? NO; ADD MORPH? NO; ADD SCAN? NO; ATYPICAL LYMPHOCYTE FLAG 30 (0-99); FRAGMENT RBC FLAG 0 (0-99); HEMATOCRIT 33.3 % (38.0-47.0); HEMOGLOBIN 11.4 g/dL (12.6-16.3); LEFT SHIFT FLG 0 (0-99); LIPEMIA HEMOLYSIS FLAG 90 (0-99); MEAN CELL HEMOGLOBIN 31.3 pg (27.9-34.1); MEAN CELL HEMOGLOBIN CONCENTR. 34.2 g/dL (32.4-36.7); MEAN CELL VOLUME 91.5 fL (81.5-99.8); MEAN PLATELET VOLUME 10.2 fL (8.7-11.7); PLATELET CLUMPS FLAG 0 (0-99); PLATELET COUNT 232 10^3/uL (150-400); RED BLOOD CELL COUNT 3.64 10^6/uL (4.18-5.33); RED CELL DISTRIBUTION WIDTH 11.7 % (11.5-15.2)
[2016-09-30] MEDS: ERTAPENEM 1 GM in NS 100 ML IV SCH (08:08)
[2016-09-30] MEDS: CYCLOSPORINE 0.05% 1 EACH BOX EACHEYE SCH (09:20)
[2016-09-30] MEDS: FAMOTIDINE 20 MG TAB PO SCH ×2 (09:20→21:21)
[2016-09-30] MEDS: DOCUSATE SODIUM 100 MG CAP PO SCH ×2 (09:20→21:21)
[2016-09-30] MEDS: CALCITONIN 200 UNITS/SPRAY INH NS SCH (09:20)
[2016-09-30] MEDS: CHOLECALCIFEROL VIT D3 1,000 UNITS TAB PO SCH (09:20)
[2016-09-30] MEDS: CARVEDILOL 25 MG TAB PO SCH ×3 (09:20→16:52)
--- NOTE | 2016-09-30 10:01 | SOAPPROG ---
SOAP Progress Note Assessment/Plan: Assessment: SP COLECTOMY WITH POSTOP ANASTAMOTIC BLEEDING/ SEEMS TO BE IMPROVED AFTER DDAVP INFUSION/ HCT 34 BUT FU PENDING Plan:OBSERVE/ CONTINUE NPO EXCEPT SIPS/ HOLD LOVENOX AND ASA 09/27/16 13:01 09/28/16 13:16 VS STABLE / HCT 29/ COAGS OK/ NO MAJOR CLOTS OR FRESH BLEEDING/ ADVANCE DIET 09/30/16 10:00 AFEBRILE/VITAL SIGNS STABLE/ABDOMEN SOFT NONTENDER/WOUND OKAY/TANIA DRAINAGE MINIMAL/NO SIGNIFICANT RECTAL BLEEDING FOR 24 HOURS/HEMATOCRIT STABLE AT 33/ HOME IN THE A.M./REGULAR DIET Objective: Vital Signs Temp Pulse Resp BP Pulse Ox 36.7 C 63 18 124/57 H 90 L 09/30/16 08:00 09/30/16 08:00 09/30/16 08:00 09/30/16 08:00 09/30/16 08:00 Laboratory Results 09/30/16 05:10 09/27/16 04:30 09/29/16 09/30/16 10/01/16 05:59 05:59 05:59 Intake Total 1662 400 Output Total 1360 4210 Balance 302 -3810 PT 14.0 SEC (12.0-15.0) 09/28/16 04:50 INR 1.09 (0.83-1.16) 09/28/16 04:50 ICD10 Worksheet Patient Problems: Problems Problem Status Onset Acute diverticulitis Acute
[2016-09-30] MEDS: ONDANSETRON DISINTEGRATING 4 MG TAB PO PRN (10:26)
[2016-09-30] MEDS: ATORVASTATIN CALCIUM 10 MG TAB PO SCH (21:21)
[2016-10-01 04:44] LABS: % IMMATURE GRANULYOCYTES 0.4 % (0.0-1.1); ABSOLUTE IMMATURE GRANULOCYTES 0.03 10^3/uL (0.00-0.10); ADD DIFF? NO; ADD MORPH? NO; ADD SCAN? NO; ATYPICAL LYMPHOCYTE FLAG 20 (0-99); FRAGMENT RBC FLAG 0 (0-99); HEMATOCRIT 33.3 % (38.0-47.0); HEMOGLOBIN 11.2 g/dL (12.6-16.3); LEFT SHIFT FLG 0 (0-99); LIPEMIA HEMOLYSIS FLAG 80 (0-99); MEAN CELL HEMOGLOBIN 31.1 pg (27.9-34.1); MEAN CELL HEMOGLOBIN CONCENTR. 33.6 g/dL (32.4-36.7); MEAN CELL VOLUME 92.5 fL (81.5-99.8); MEAN PLATELET VOLUME 9.9 fL (8.7-11.7); PLATELET CLUMPS FLAG 0 (0-99); PLATELET COUNT 269 10^3/uL (150-400); RED CELL DISTRIBUTION WIDTH 11.9 % (11.5-15.2)
[2016-10-01 05:04] VITALS: RESP 16
[2016-10-01] MEDS: ERTAPENEM 1 GM in NS 100 ML IV SCH ×2 (07:40→08:03)
[2016-10-01] MEDS: CARVEDILOL 25 MG TAB PO SCH (07:41)
[2016-10-01] MEDS: CALCITONIN 200 UNITS/SPRAY INH NS SCH (07:46)
[2016-10-01] MEDS: CYCLOSPORINE 0.05% 1 EACH BOX EACHEYE SCH (07:46)
[2016-10-01] MEDS: CHOLECALCIFEROL VIT D3 1,000 UNITS TAB PO SCH (07:47)
[2016-10-01] MEDS: DOCUSATE SODIUM 100 MG CAP PO SCH (07:48)
[2016-10-01] MEDS: FAMOTIDINE 20 MG TAB PO SCH ×2 (07:48→21:03)
[2016-10-01] MEDS ORDERED: LACTULOSE 20 GM/30 ML UDCUP PO PRN (08:45)
[2016-10-01] MEDS ORDERED: POLYETHYLENE GLYCOL 3350 17 GM PKT PO PRN (08:45)
[2016-10-01] MEDS ORDERED: MAGNESIUM HYDROXIDE 30 ML UDCUP PO PRN (08:45)
[2016-10-01] MEDS ORDERED: BISACODYL 10 MG SUPP PR PRN (08:45)
--- NOTE | 2016-10-01 10:39 | SOAPPROG ---
SOAP Progress Note Assessment/Plan: Assessment: POD # 5 s/p lap sigmoidectomy with splenic flexure takedown Post op have bleeding likely from staple line which has resolved Acute anemia blood loss Neuro - pain controlled Resp - Cough deep breath Cards - stable FEN - regular dies GI - Awaiting BM. Suspect she may have some bleeding with BM. Bowel protocol Heme/ID - d/c Invanz. H/H improving Proph - Holding lovenox due to bleeding Dispo - home after BM S: Some fullness/bloating after meals. No nausea. Pain controlled. Not sure if passing flatus. O: Sitting in bed, appears comfortable CTAB Regular rate TANIA with serous fluid Incisions cdi with yellowing ecchymosis BS presents and soft Plan: 09/26/16 18:36 09/27/16 03:17 10/01/16 10:35 Objective: Vital Signs Temp Pulse Resp BP Pulse Ox 36.6 C 73 16 112/72 97 10/01/16 07:28 10/01/16 07:28 10/01/16 07:28 10/01/16 07:28 10/01/16 07:28 Laboratory Results 10/01/16 04:35 09/27/16 04:30 09/30/16 10/01/16 10/02/16 05:59 05:59 05:59 Intake Total 400 1200 Output Total 4210 1467 320 Balance -3810 -265 -320 PT 14.0 SEC (12.0-15.0) 09/28/16 04:50 INR 1.09 (0.83-1.16) 09/28/16 04:50 ICD10 Worksheet Patient Problems: Problems Problem Status Onset Acute diverticulitis Acute
[2016-10-01] MEDS: SENNOSIDES/DOCUSATE SODIUM TAB PO SCH ×2 (11:11→21:03)
[2016-10-01] MEDS: HYDROCODONE/APAP 5/325 TAB PO PRN ×2 (14:49→21:04)
[2016-10-01] MEDS: ATORVASTATIN CALCIUM 10 MG TAB PO SCH (21:04)
[2016-10-01 21:15] VITALS: PULSE 63
[2016-10-02 07:35] VITALS: BP 122/67; TEMP 98.1; O2SAT 98
--- NOTE | 2016-10-02 08:54 | SOAPPROG ---
SOAP Progress Note Assessment/Plan: Assessment: POD #6 s/p lap sigmoidectomy with splenic flexure takedown Post op have bleeding likely from staple line which has resolved Acute anemia blood loss Neuro - pain controlled with PO pain meds Resp - Cough deep breath Cards - stable FEN - regular diet GI - +BM yesterday with small amount of bleeding. Continue bowel protocol Heme/ID - d/c Invanz. H/H improving Proph - Holding lovenox due to bleeding. Restart aspirin in 1 week Dispo - DC today. remove picc line. remove nawaf drain S: tolerating regular diet. pain controlled. some bleeding with bowel movement. O: Sitting on couch, daughters present, appears comfortable NAWAF with serous fluid Incisions cdi with yellowing ecchymosis BS presents and soft Objective: Vital Signs Temp Pulse Resp BP Pulse Ox 36.7 C 63 16 122/67 H 98 10/02/16 07:34 10/02/16 07:34 10/02/16 07:34 10/02/16 07:34 10/02/16 07:34 Laboratory Results 10/01/16 04:35 09/27/16 04:30 10/01/16 10/02/16 10/03/16 05:59 05:59 05:59 Intake Total 1200 Output Total 1465 440 Balance -265 -440 PT 14.0 SEC (12.0-15.0) 09/28/16 04:50 INR 1.09 (0.83-1.16) 09/28/16 04:50 ICD10 Worksheet Patient Problems: Problems Problem Status Onset Acute diverticulitis Acute
[2016-10-02] MEDS ORDERED: GABAPENTIN 300 MG CAP PO SCH (09:00)
[2016-10-02] MEDS: SENNOSIDES/DOCUSATE SODIUM TAB PO SCH (09:18)
[2016-10-02] MEDS: CHOLECALCIFEROL VIT D3 1,000 UNITS TAB PO SCH (09:18)
[2016-10-02] MEDS: FAMOTIDINE 20 MG TAB PO SCH (09:18)
[2016-10-02] MEDS: CYCLOSPORINE 0.05% 1 EACH BOX EACHEYE SCH (09:19)
[2016-10-02] MEDS: CALCITONIN 200 UNITS/SPRAY INH NS SCH (09:19)
--- NOTE | 2016-10-02 10:48 | GDS ---
[f rep st] DISCHARGE SUMMARY ADMITTING DIAGNOSIS: Recurrent diverticulitis. SECONDARY DIAGNOSES: Acute blood-loss anemia, resolved. REASON FOR ADMISSION: The patient is a 76-year-old woman, who has had several episodes of diverticu litis. She was admitted at this time for surgical intervention, pain control, observation, and some return of bowel function. HOSPITAL COURSE: She was taken to the operating room on 09/26/2016, by Dr. Gabriela Woodson, for a lapar oscopic-assisted sigmoid colectomy, with splenic flexure takedown. Final pathology revealed diverti culosis. No evidence of malignancy. No evidence of perforation. On the evening of surgery, she de veloped bright red bleeding per rectum. On evaluation, she seemed to be bleeding from the staple li ne of the anastomosis. Her rectum was packed with Surgicel and thrombin. 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 Lab evaluation showed her to be anemic as a result of acute blood loss. Serial H and H signif icantly improved through the remainder of her hospital stay. On postoperative day #3, she was trans itioned to a regular diet, which she tolerated without nausea, vomiting, or distention. She began t o pass flatus on that day. Her pain was well controlled with oral pain medication, and on postopera tive day #6, her pain was well controlled, tolerating regular diet, ambulating independently, and wa s ready for discharge. She received a course of IV antibiotics through her hospital stay, and had a bowel movement on postoperative day #5. CONDITION: She is being discharged home in stable condition. Pain is controlled, tolerating a regu lar diet, and ambulating independently. DISCHARGE INSTRUCTIONS AND FOLLOWUP: She will follow up with Dr. Gabriela Woodson in 2 weeks. She under stands to avoid heavy lifting, pushing, or pulling for 6 weeks. She may shower. She will avoid hot tubs, swimming pools, bathtubs for 2 weeks. She understands to call our office with any worsening symptoms, questions, or concerns. DISCHARGE MEDICATIONS: She was sent home with a prescription for [place]. She was instructed to resu me home medications. Please see EMR for further detail. She was instructed to hold her aspirin and resume in 1 week. /[id number]/MODL
== END 2016-10-02 11:37 | disposition home or self-care (01) | DRG 330 ==
LOC: F3E 06:45
PROVIDERS: ADMIT Surgery; ATTEND Surgery
PROC: 0DTN4ZZ Resection of Sigmoid Colon, Percutaneous Endoscopic Approach (ICD-10-PCS; principal; 2016-09-26 08:30)
DX: K57.32 Diverticulitis of large intestine without perforation or abscess without bleeding (principal); D62 Acute posthemorrhagic anemia; I10 Essential (primary) hypertension; Z86.73 Personal history of transient ischemic attack (TIA), and cerebral infarction without residual deficits
CPT/HCPCS: J0690; J0694; J1170; J1335; J2250; J2405; J2597; J2704; J3010

== ENCOUNTER → 2016-10-10 | Outpatient (CLI) | payer OTHER | LOC: FIMAGING 15:20 | PROVIDERS: ATTEND Surgery | DX: I82.B11 Acute embolism and thrombosis of right subclavian vein (principal); I82.611 Acute embolism and thrombosis of superficial veins of right upper extremity ==